=== PATIENT | female | born 1935 | race Caucasian/White ===

== ENCOUNTER 2018-01-25 11:09 | Emergency (ER) | payer MEDICARE, OTHER, SELFPAY ==
[2018-01-25 11:20] VITALS: BP 119/68; PULSE 70; RESP 18; TEMP 37.6; O2SAT 99; BMI 26.6
--- NOTE | 2018-01-25 11:30 | ED_ITS ---
HPI - Neuro Symptoms/Deficit General Chief Complaint: Neuro Symptoms/Deficit Stated Complaint: TREMORS, CHOKING ON SALIVA Time Seen by Provider: 01/25/18 11:11 Source: patient Mode of arrival: ambulatory Limitations: no limitations History of Present Illness HPI Narrative: 82-year-old female sent over from her primary care doctor's office for concerns of involuntary twitching. Patient states that she has never had any symptoms like this before. She went to her primary care doctor this morning for an already scheduled follow-up appointment for lower extremity issues. Patient states she woke this morning at approximately 7 o'clock. She states approximately 15 min after that she started to have involuntary movements of her face and upper extremities. Does not seem to involve her lower extremities. Is at baseline somewhat unsteady on her feet and she thinks she has become slightly more unsteady since these events started. They have not been consistent. Does not know any thing that triggers them. There are not suppress oval. Denies any other symptoms to include headache vision changes. No new medications. Related Data Home Medications Medication Instructions Recorded Confirmed Probiotic 1 cap PO QID 01/25/18 01/25/18 amlodipine 5 mg PO DAILY 01/25/18 01/25/18 ascorbic acid (vitamin C) [Vitamin 1,000 mg PO DAILY 01/25/18 01/25/18 C] atorvastatin 5 mg PO QHS 01/25/18 01/25/18 biotin 1 tab PO DAILY 01/25/18 01/25/18 bupropion HCl 150 mg PO BID 01/25/18 01/25/18 cholecalciferol (vitamin D3) 2,000 unit PO DAILY 01/25/18 01/25/18 [Vitamin D3] cyanocobalamin (vitamin B-12) 1 tab SUBLINGUAL DAILY 01/25/18 01/25/18 [Vitamin B-12] escitalopram oxalate 20 mg PO DAILY 01/25/18 01/25/18 gabapentin 300 mg PO TID 01/25/18 01/25/18 isosorbide mononitrate 10 mg PO BID 01/25/18 01/25/18 levothyroxine 50 mcg PO DAILY 01/25/18 01/25/18 lorazepam 0.5 mg PO DAILY PRN 01/25/18 01/25/18 losartan 100 mg PO DAILY 01/25/18 01/25/18 meloxicam 7.5 mg PO DAILY PRN 01/25/18 01/25/18 metformin 4 tab PO QPM 01/25/18 01/25/18 metoclopramide HCl 10 mg PO QID 01/25/18 01/25/18 metoprolol succinate 100 mg PO DAILY 01/25/18 01/25/18 montelukast 10 mg PO QPM 01/25/18 01/25/18 multivitamin 1 tab PO DAILY 01/25/18 01/25/18 nitroglycerin [Nitrostat] 0.4 mg SUBLINGUAL PRN PRN 01/25/18 01/25/18 pantoprazole 40 mg PO DAILY 01/25/18 01/25/18 sitagliptin [Januvia] 100 mg PO DAILY 01/25/18 01/25/18 zolpidem 5 mg PO QHS 01/25/18 01/25/18 Previous Rx's Medication Instructions Recorded lorazepam 0.5 mg PO .once PRN #5 tab 01/25/18 Allergies Allergy/AdvReac Type Severity Reaction Status Date / Time codeine [CODEINE] Allergy Intermediate Tired and Unverified 12/15/17 12:35 drowsy erythromycin base Allergy Intermediate Makes her Unverified 12/15/17 12:35 [ERYTHROMYCIN BASE] feel awful ciprofloxacin [CIPROFLOXACIN] Allergy Unknown Makes her Verified 01/25/18 11:30 very ill Review of Systems Constitutional Denies chills, Denies fever(s), Denies headache(s), Denies lethargy and Denies weakness Eyes Denies change in vision, Denies diplopia, Denies eye discharge, Denies irritation and Denies loss of vision ENT Ears, Nose, Mouth, and Throat: Denies change in voice, Denies dizziness, Denies headache(s), Denies neck pain and Denies sore throat Cardiovascular Denies chest pain, Denies syncope, Denies irregular heart rhythm, Denies lightheadedness, Denies palpitations, Denies dyspnea, Denies dyspnea on exertion and Denies orthopnea Respiratory Denies cough, Denies dyspnea, Denies dyspnea on exertion and Denies wheezing Gastrointestinal Gastrointestinal: Denies abdominal pain, Denies change in bowel habits, Denies diarrhea, Denies nausea and Denies vomiting Musculoskeletal Denies myalgias, Denies muscle cramps, Denies muscle weakness, Denies neck pain , Denies numbness, Denies stiffness and Denies tingling Integumentary/Breasts Denies pruritus, Denies erythema, Denies rash and Denies wounds Neurologic Denies behavioral changes, Denies confusion, Denies dizziness, Denies syncope, Denies headache(s), Denies lack of coordination, Denies focal weakness, Denies loss of vision, Denies numbness, Denies restless legs, Reports convulsions, Denies tingling and Denies weakness Comments: Involuntary twitching of the face and bilateral upper extremities Psychiatric Denies behavioral changes and Denies confusion Endocrine Denies palpitations Hematologic/Lymphatic Denies easy bruising Allergic/Immunologic Denies wheezing [facility] Social History Smoking Status: Never smoker Exam Initial Vital Signs Initial Vital Signs: Vital Signs Temperature 99.7 F H 01/25/18 11:20 Pulse Rate 70 01/25/18 11:20 Respiratory Rate 18 01/25/18 11:20 Blood Pressure 119/68 01/25/18 11:20 Pulse Oximetry 99 01/25/18 11:20 Const General: cooperative and well developed Nutritional Appearance: well nourished Orientation: alert, awake, oriented x3 and not confused Eyes General: appearance normal, both eyes and all related structures Pupils: PERRL Resp Effort & Inspection: normal respiratory effort, able to speak in complete sentences, no respiratory distress and no use of accessory muscles Auscultation: clear to auscultation bilaterally, no rales, no rhonchi and no wheezes Cardio Rate: regular rate Rhythm: regular rhythm Heart Sounds: no click, no gallops, no murmurs and no rubs Pulses: normal peripheral pulses GI Inspection: non-distended Palpation: soft, no hepatosplenomegaly, No guarding, No pulsatile mass and No tender Auscultation: normal bowel sounds Skin General: no rashes or lesions noted, No jaundice and No petechiae Neuro General: alert, awake, oriented x3, moves all extremities and no meningeal signs Cranial Nerves: CN's II-XI intact bilaterally and PERRL Cognition: normal cognition Speech: speech normal Motor: strength 5/5 throughout Sensory Exam: no sensory deficits noted Other: Patient with what appears to be muscle spasms involving both sides of her face both the top and the bottom and both upper extremities equally. Does not involve the lower extremities. Does not seem to be suppressed supple. Asked the patient to smile when the event happened and she was able to smile however her mouth was twitching. Also has times where she closes her eyes. Patient is alert and oriented. No other focal deficits. Strength 5/5 bilateral upper and lower extremities. Extrem General: full ROM, no clubbing, cyanosis or edema, no pedal edema and no calf tenderness Psych Appearance: well kempt Mental Status: mental status grossly normal Attitude: cooperative Thought Content: normal Judgment: judgment good Course Orders Ordered: ED Orders 01/25/18 11:30 CT head/brain wo con Stat Thyroid Stimulating Hormone Stat 01/25/18 11:35 Comprehensive Metabolic Panel Stat Prolactin Stat Discontinued Medications Lorazepam (Ativan) 1 mg IV NOW ONE Stop: 01/25/18 11:34 Last Admin: 01/25/18 11:41 Dose: 1 mg Vital Signs - 8 hr 01/25/18 11:20 01/25/18 12:05 01/25/18 12:56 Temperature 99.7 F H Pulse Rate 70 66 63 Respiratory Rate 18 14 16 Blood Pressure 119/68 Blood Pressure [Right Arm] 110/60 110/62 Pulse Oximetry 99 97 97 01/25/18 12:57 Temperature Pulse Rate 64 Respiratory Rate 16 Blood Pressure Blood Pressure [Right Arm] 110/62 Pulse Oximetry MDM - Neuro Symptoms/Deficit Lab Data Attestation: I reviewed the patient's lab results. Result diagrams: 01/25/18 11:35 Lab Results 01/25/18 01/25/18 Range/Units 11:30 11:35 Sodium 143 (137-145) mmol/L Potassium 5.4 H (3.4-5.1) mmol/L Chloride 105.0 (98-107) mmol/L Carbon Dioxide 25.0 (22-32) mmol/L BUN 24.0 H (7-17) mg/dL Creatinine 1.00 (0.52-1.04) mg/dL Estimated GFR 53.0 L (>60) mL/min BUN/Creatinine Ratio 24.0 H (6-22) Glucose 88 (80-110) mg/dL Calcium 9.2 (8.4-10.2) mg/dL Total Bilirubin 0.7 (0.2-1.3) mg/dL AST 39 H (14-36) IU/L ALT 29 (9-52) IU/L Alkaline Phosphatase 48 (38-126) U/L Total Protein 7.2 (6.3-8.2) g/dL Albumin 3.9 (3.5-5.0) g/dL Globulin 3.3 (1.7-4.1) g/dL Albumin/Globulin Ratio 1.2 (1.0-2.8) TSH 1.47 (0.47-4.68) uIU/mL Prolactin 92.0 H (3.0-18.6) ng/mL Imaging Data CT scan - head: Radiologist's impression: PROCEDURE: CT HEAD/BRAIN WO CON INDICATIONS: Seizure-like activity TECHNIQUE: Noncontrast 4.5 mm thick angled axial sections acquired from the foramen magnum to the vertex, with coronal and sagittal reformats. For radiation dose reduction, the following was used: automated exposure control, adjustment of mA and/or kV according to patient size. COMPARISON: None. FINDINGS: Image quality: Excellent. CSF spaces: Basal cisterns are patent. No extra-axial fluid collections. The ventricles are symmetric in size and shape. Brain: No intracranial bleeds or masses. There is cerebral volume loss for age , with resultant ventricular and sulcal prominence. There are periventricular and deep white matter chronic small vessel ischemic changes. There is intracranial internal carotid artery atherosclerosis. Skull and face: Calvarium and visualized facial bones appear intact, without suspicious lesions. Sinuses: Visualized sinuses and mastoids are clear. IMPRESSION: 1. Mild age related atrophy and chronic deep white matter ischemic changes. 2. No intracranial hemorrhage or space occupying mass lesion. Dictated by: Evan Sinha M.D. on 01/25/2018 at 12:02 [facility] Narrative Medical decision making narrative: 82-year-old female with relatively expected head CT for her age that had symptoms resolved after the Ativan here in the emergency department. She was alert and oriented during her entire time that was here. Considered medications that could potentially cause extrapyramidal side effects however she is only on Lexapro Wellbutrin Ambien and gabapentin that could potentially cause this and these are not classic for this type of reaction. I suspect that she was having partial seizures however this is not certain. Had a long discussion with the patient and her granddaughter who was at bedside regarding her symptoms. Will hold on anti seizure medication for now since this was the 1st incident that was like this. Informed her that she did need to talk with her primary care doctor who is aware of the situation because it was going on while she was at her primary doctor's office prior to this visit and to discuss the indication for an EEG and neurology follow-up. Patient was given return precautions. Will send home with a few pills of Ativan to take in the event that these symptoms reoccur. Patient a granddaughter expressed understanding and agreement with plan. Discharge Plan Departure Patient Disposition: Home, Self-Care Clinical Impression: Observed seizure-like activity Instructions: DI for Seizure Disorder -- Adult Activity Restrictions/Additional Instructions: Continue to take all of your medications as instructed. Have a feeling that the symptoms that she had today are partial seizures however this diagnosis is not certain. I highly recommend that you contact your primary care doctor to discuss the indication for a referral to see Neurology and an EEG. The medication you were given today is to be used in the case of these symptoms returning. Return to the emergency department for any new or worsening symptoms. Prescriptions: New lorazepam 0.5 mg tablet 0.5 mg PO .once PRN (Reason: shaking) Qty: 5 RF: 0 No Action bupropion HCl 150 mg tablet extended release 12 hr 150 mg PO BID RF: 0 gabapentin 600 mg tablet 300 mg PO TID RF: 0 atorvastatin 10 mg tablet 5 mg PO QHS RF: 0 metoprolol succinate 100 mg tablet extended release 24 hr 100 mg PO DAILY RF: 0 amlodipine 5 mg tablet 5 mg PO DAILY RF: 0 levothyroxine 50 mcg tablet 50 mcg PO DAILY RF: 0 pantoprazole 40 mg tablet,delayed release (DR/EC) 40 mg PO DAILY RF: 0 montelukast 10 mg tablet 10 mg PO QPM RF: 0 isosorbide mononitrate 10 mg tablet 10 mg PO BID RF: 0 zolpidem 10 mg tablet 5 mg PO QHS RF: 0 losartan 100 mg tablet 100 mg PO DAILY RF: 0 metformin 500 mg tablet extended release 24 hr 4 tab PO QPM RF: 0 escitalopram oxalate 20 mg tablet 20 mg PO DAILY RF: 0 sitagliptin [Januvia] 100 mg tablet 100 mg PO DAILY RF: 0 nitroglycerin [Nitrostat] 0.4 MG tablet, sublingual 0.4 mg Sublingual PRN PRN (Reason: Chest Pain) RF: 0 multivitamin Tablet 1 tab PO DAILY RF: 0 ascorbic acid (vitamin C) [Vitamin C] 1,000 mg Tablet 1,000 mg PO DAILY RF: 0 meloxicam 15 mg Tablet 7.5 mg PO DAILY PRN (Reason: Pain, Moderate) RF: 0 lorazepam 0.5 mg Tablet 0.5 mg PO DAILY PRN (Reason: Anxiety) RF: 0 metoclopramide HCl 10 mg Tablet 10 mg PO QID RF: 0 cholecalciferol (vitamin D3) [Vitamin D3] 2,000 unit Tablet 2,000 unit PO DAILY RF: 0 cyanocobalamin (vitamin B-12) [Vitamin B-12] 5,000 mcg Tablet, Sublingual 1 tab Sublingual DAILY RF: 0 Probiotic 1 cap PO QID RF: 0 biotin 7,500 mcg 1 tab PO DAILY RF: 0
[2018-01-25] MEDS: LORazepam 2 MG/ML SYRINGE 1 MG IV (11:41)
[2018-01-25 11:56] LABS: Alanine Aminotransferase 29 IU/L (9-52); Albumin 3.9 g/dL (3.5-5.0); Albumin Globulin Ratio 1.2 (1.0-2.8); Alkaline Phosphatase 48 U/L (38-126); Aspartate Aminotransferase 39 IU/L (14-36); Bilirubin Total 0.7 mg/dL (0.2-1.3); Calcium 9.2 mg/dL (8.4-10.2); Globulin 3.3 g/dL (1.7-4.1); Glucose 88 mg/dL (80-110); HEMOLYSIS 30 (0-50); Sodium 143 mmol/L (137-145); Total Protein 7.2 g/dL (6.3-8.2)
[2018-01-25 11:57] LABS: Potassium 5.4 mmol/L (3.4-5.1)
[2018-01-25 12:05] VITALS: BP 110/60; PULSE 66; RESP 14; O2SAT 97
[2018-01-25 12:52] LABS: Thyroid Stimulating Hormone 1.47 uIU/mL (0.47-4.68)
[2018-01-25 12:56] VITALS: BP 110/62; PULSE 63; RESP 16; O2SAT 97
[2018-01-25 12:57] VITALS: BP 110/62; PULSE 64; RESP 16
[2018-01-25 13:00] VITALS: BP 117/58; PULSE 65; RESP 18; O2SAT 97
== END 2018-01-25 13:31 | disposition home or self-care (01) ==
PROVIDERS: Emergency Provider Emergency Medicine
DX: R56.9 Unspecified convulsions (principal)
CPT/HCPCS: 36591; 70450; 80053; 82962; 84146; 84443; 96374; 99283; 99284; J2060

== ENCOUNTER → 2018-04-11 08:24 | Outpatient (CLI) | payer MEDICARE, OTHER, SELFPAY ==
[2018-04-11 11:13] LABS: TSH w/ Reflex to FT4 0.94 uIU/mL (0.47-4.68)
== END ==
PROVIDERS: Visit Provider Internal Medicine
DX: E03.9 Hypothyroidism, unspecified (principal)
CPT/HCPCS: 36415; 84443

== ENCOUNTER → 2018-07-07 09:24 | Outpatient (CLI) | payer MEDICARE, OTHER, SELFPAY ==
[2018-07-07 10:40] LABS: Add Manual Diff / Slide Review NO; Basophils Percent Auto 1.1 % (0-2); Eosinophils Percent Auto 9.4 % (2-4); Hematocrit 39.8 % (36-46); Hemoglobin 12.9 g/dL (12.0-16.0); Lymphocytes Percent Auto 31.9 % (25-40); Mean Corpuscular HGB Conc 32.4 % (30-36); Mean Corpuscular Hemoglobin 27.2 PG (26-34); Neutrophils Absolute Auto 3100 /uL (3000-5900); Neutrophils Percent Auto 49.6 % (50-75); Platelet Count 292 X10^3/uL (150-400); Red Blood Cell Count 4.74 X10^6/uL (4.0-5.2); Red Cell Distribution Width 14.6 % (11.6-14.8); White Blood Cell Count 6.2 X10^3/uL (4.5-11.0)
[2018-07-07 11:32] LABS: TSH w/ Reflex to FT4 1.38 uIU/mL (0.47-4.68)
[2018-07-07 12:48] LABS: Alanine Aminotransferase 34 IU/L (9-52); Aspartate Aminotransferase 46 IU/L (14-36); Blood Urea Nitrogen 21 mg/dL (7-17); Calcium 8.9 mg/dL (8.4-10.2); Carbon Dioxide 28 mmol/L (22-32); Chloride 105 mmol/L (98-107); Cholesterol 174 mg/dL (140-199); Estimated Glomerular Filt Rate 52.8 mL/min (>60); Glucose 182 mg/dL (80-110); HDL Cholesterol 65 mg/dL (40-60); HEMOLYSIS < 15 (0-50); LDL Cholesterol Calculated 72 mg/dL (<100); Potassium 4.1 mmol/L (3.4-5.1); Sodium 144 mmol/L (137-145); Triglycerides 186 mg/dL (35-150)
== END ==
PROVIDERS: Visit Provider Internal Medicine
DX: I10 Essential (primary) hypertension (principal); E78.5 Hyperlipidemia, unspecified; R19.7 Diarrhea, unspecified; E03.9 Hypothyroidism, unspecified
CPT/HCPCS: 36415; 80048; 80061; 84443; 84450; 84460; 85025

== ENCOUNTER → 2018-07-12 14:33 | Outpatient (CLI) | payer MEDICARE, OTHER, SELFPAY | PROVIDERS: PCP Internal Medicine; Visit Provider Internal Medicine | DX: Z00.00 Encounter for general adult medical examination without abnormal findings (principal); M85.851 Other specified disorders of bone density and structure, right thigh; Z78.0 Asymptomatic menopausal state; E11.9 Type 2 diabetes mellitus without complications; E07.9 Disorder of thyroid, unspecified; N28.9 Disorder of kidney and ureter, unspecified | CPT/HCPCS: 77080 ==

== ENCOUNTER → 2018-10-06 10:08 | Outpatient (CLI) | payer MEDICARE, OTHER, SELFPAY ==
[2018-10-06 11:37] LABS: Alanine Aminotransferase 21 IU/L (9-52); Aspartate Aminotransferase 21 IU/L (14-36); BUN Creatinine Ratio 22.5 (6-22); Blood Urea Nitrogen 27 mg/dL (7-17); Calcium 9.5 mg/dL (8.4-10.2); Carbon Dioxide 29 mmol/L (22-32); Chloride 100 mmol/L (98-107); Cholesterol 188 mg/dL (140-199); Estimated Glomerular Filt Rate 42.8 mL/min (>60); Glucose 267 mg/dL (80-110); HDL Cholesterol 68 mg/dL (40-60); HEMOLYSIS < 15 (0-50); LDL Cholesterol Calculated 87 mg/dL (<100); Potassium 4.4 mmol/L (3.4-5.1); Sodium 139 mmol/L (137-145); Triglycerides 167 mg/dL (35-150)
[2018-10-06 11:41] LABS: Hemoglobin A1C% w Est Avg Glu 9.4 % (4.0-6.0)
[2018-10-06 14:11] LABS: TSH w/ Reflex to FT4 1.91 uIU/mL (0.47-4.68)
== END ==
PROVIDERS: PCP Internal Medicine; Visit Provider Internal Medicine
DX: I10 Essential (primary) hypertension (principal); E78.5 Hyperlipidemia, unspecified; E11.9 Type 2 diabetes mellitus without complications; E03.9 Hypothyroidism, unspecified
CPT/HCPCS: 36415; 80048; 80061; 83036; 84443; 84450; 84460

== ENCOUNTER → 2018-12-20 18:36 | Outpatient (CLI) | payer MEDICARE, OTHER, SELFPAY ==
--- NOTE | 2018-12-20 18:40 | DI.MRI.S_ITS ---
PROCEDURE: MR HEAD/BRAIN WO CON INDICATIONS: SLURRED SPEECH TECHNIQUE: Non-contrast axial T1 spin echo, axial T2 fast spin echo, sagittal and axial FLAIR, coronal T2 fast spin echo, axial gradient echo, axial diffusion and ADC through the brain. COMPARISON: None. FINDINGS: Image quality: Excellent. CSF spaces: Ventricles appear symmetric in size and shape. Basal cisterns are patent. No extra-axial fluid collections. Brain: No intracranial bleeds or mass effects. There is cerebral volume loss for age. There are periventricular and deep white matter chronic small vessel ischemic changes. Brainstem appears normal. Diffusion-weighted images show no acute ischemic insults. No chronic ischemic insults. Normal intravascular flow voids are present. Skull and face: Calvarial bone marrow is normal in signal. Orbits are normal. Sinuses: Sinuses and mastoids are clear. IMPRESSION: Moderate microvascular atherosclerotic change in the deep white matter of each hemisphere but no stroke or mass is seen and no hemorrhage is identified. Dictated by: Gautam Quinones M.D. on 12/21/2018 at 8:06 Approved by: Gautam Quinones M.D. on 12/21/2018 at 8:07
== END ==
PROVIDERS: PCP Internal Medicine; Visit Provider Internal Medicine
DX: R47.81 Slurred speech (principal); I67.2 Cerebral atherosclerosis
CPT/HCPCS: 70551

== ENCOUNTER → 2019-01-19 16:49 | Outpatient (CLI) | payer MEDICARE, OTHER, SELFPAY ==
--- NOTE | 2019-01-19 16:52 | DI.MRI.S_ITS ---
PROCEDURE: MR HUMERUS LT WO/W CON INDICATIONS: Left upper arm pain radiating from shoulder TECHNIQUE: Noncontrast coronal T1 spin echo and STIR, sagittal T1 spin echo with fat saturation and STIR, axial T1 spin echo and T2 fast spin echo with fat saturation. After the administration of contrast, axial/sagittal/coronal T1 spin echo with fat saturation through the left humerus. COMPARISON: None. FINDINGS: Image quality: Excellent. Bones: Osteoarthritic changes are noted in the acromioclavicular joint and glenohumeral joint. Intraosseous cyst formation and greater tuberosity of humeral head is seen. There is no marrow edema. No fracture or dislocation. No bony erosive changes. No suspicious intraosseous lesion. No abnormal intraosseous enhancement. Soft tissues: There is tendinosis and low to moderate grade articular and bursal surface partial-thickness tear involving distal supraspinatus and infraspinatus extending to musculotendinous junction. Distal subscapularis tendinosis is also seen. Proximal intra-articular portion of long head biceps tendinosis is seen, and no evidence of biceps tendon rupture. There is small to moderate amount of joint fluid, subacromial subdeltoid bursal fluid and subcoracoid bursal fluid. No gross intra-articular loose body. No soft tissue masses are visualized. The scanned muscles demonstrate normal overall bulk and internal signal. Subcutaneous tissues appear normal as well. No abnormal soft tissue enhancement. IMPRESSION: 1. No soft tissue mass or fluid collection. No area of abnormal soft tissue enhancement or intraosseous enhancement. 2. 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 No marrow edema. No fracture or dislocation. 3. Tendinosis and low to moderate grade articular and bursal surface partial-thickness tear involving distal supraspinatus and infraspinatus. Distal subscapularis tendinosis. Tendinosis and low-grade intrasubstance partial thickness involving proximal intra-articular portion of long head biceps tendon. No full-thickness tendon rupture. No gross muscle signal abnormality. Dictated by: Dylan Blake M.D. on 01/20/2019 at 13:30 Approved by: Dylan Blake M.D. on 01/20/2019 at 13:41
== END ==
PROVIDERS: PCP Internal Medicine; Visit Provider Internal Medicine
DX: M79.622 Pain in left upper arm (principal); M75.112 Incomplete rotator cuff tear or rupture of left shoulder, not specified as traumatic; M25.512 Pain in left shoulder; R22.32 Localized swelling, mass and lump, left upper limb
CPT/HCPCS: 73220; A9579

== ENCOUNTER → 2019-02-11 11:43 | Outpatient (CLI) | payer MEDICARE, OTHER, SELFPAY ==
[2019-02-11 13:13] LABS: Clostridium Difficile Tox PCR Negative for C. diff
== END ==
PROVIDERS: PCP Internal Medicine; Visit Provider Internal Medicine
DX: R19.7 Diarrhea, unspecified (principal)
CPT/HCPCS: 87493

== ENCOUNTER → 2019-03-28 13:16 | Outpatient (CLI) | payer MEDICARE, OTHER, SELFPAY ==
--- NOTE | 2019-03-28 | DI.RAD.S_ITS ---
PROCEDURE: XR FOOT LT MIN 3V INDICATIONS: Pain in Lt foot TECHNIQUE: 3 views of the foot were acquired. COMPARISON: None. FINDINGS: Bones: No acute fracture or dislocation. There is mild interphalangeal joint space narrowing. Mild degenerative changes are present within the mid foot. A subchondral cyst is present within the navicular bone. A subchondral cyst or bony erosion is present at the head of the second metatarsal. Soft tissues: No tibiotalar joint effusion. Achilles tendon appears normal. IMPRESSION: 1. Degenerative changes as above. 2. Questionable bony erosions of the navicular bone and second metatarsal versus subchondral cyst. Erosive arthritis could be considered in the differential diagnosis. Dictated by: Zena Qureshi M.D. on 03/28/2019 at 14:36 Approved by: Zena Qureshi M.D. on 03/28/2019 at 14:37
== END ==
PROVIDERS: PCP Internal Medicine; Visit Provider Student in an Organized Health Care Education/Training Program
DX: M79.672 Pain in left foot (principal); M19.072 Primary osteoarthritis, left ankle and foot
CPT/HCPCS: 73630

== ENCOUNTER → 2019-04-01 11:13 | Outpatient (CLI) | payer MEDICARE, OTHER, SELFPAY ==
[2019-04-01 12:23] LABS: Add Manual Diff / Slide Review NO; Basophils Absolute Auto 100 /uL (0-100); Basophils Percent Auto 1.1 % (0-2); Eosinophils Absolute Auto 200 /uL (0-450); Eosinophils Percent Auto 3.2 % (2-4); Hematocrit 41.4 % (36-46); Hemoglobin 13.8 g/dL (12.0-16.0); Lymphocytes Absolute Auto 1900 /uL (1100-4500); Lymphocytes Percent Auto 26.4 % (25-40); Mean Corpuscular HGB Conc 33.2 % (30-36); Mean Corpuscular Hemoglobin 28.9 PG (26-34); Monocytes Absolute Auto 700 /uL (0-900); Monocytes Percent Auto 9.4 % (3-14); Neutrophils Absolute Auto 4200 /uL (1500-7000); Neutrophils Percent Auto 59.9 % (50-75); Platelet Count 245 X10^3/uL (150-400); Red Blood Cell Count 4.76 X10^6/uL (4.0-5.2); Red Cell Distribution Width 14.6 % (11.6-14.8)
[2019-04-01 12:32] LABS: Rheumatoid Factor 21.8 IU/mL (<12.0)
[2019-04-01 12:35] LABS: C-Reactive Protein Quant < 0.5 mg/dL (<1.0)
[2019-04-01 12:51] LABS: Erythrocyte Sedimentation Rate 23 MM/HR (0-20)
== END ==
PROVIDERS: PCP Internal Medicine; Visit Provider Internal Medicine
DX: M25.50 Pain in unspecified joint (principal)
CPT/HCPCS: 36415; 85025; 85651; 86140; 86200; 86430

== ENCOUNTER 2019-06-24 10:17 | Observation (INO) | payer MEDICARE, OTHER, SELFPAY ==
[2019-06-24] VITALS (15 sets, daily range): BP systolic 121–159; BP diastolic 56–74; PULSE 60–74; RESP 16–32; TEMP 36.6–37.8; O2SAT 93–100; BMI 29.1; BMI 28.6
--- NOTE | 2019-06-24 10:33 | DI.RAD.S_ITS ---
PROCEDURE: XR CHEST 1V INDICATIONS: confusion TECHNIQUE: One view of the chest was acquired. COMPARISON: [facility], , CHEST 1 VIEW, 03/24/2017, 22:14. FINDINGS: Surgical changes and devices: None. Lungs and pleura: Lungs are clear. No pleural effusions or pneumothorax. Mediastinum: Mediastinal contours appear normal. Heart size is normal. Bones and chest wall: No suspicious bony lesions. Degenerative changes of the spine and shoulders. Calcification adjacent to the humeral head, likely of the rotator cuff tendon. IMPRESSION: No acute cardiopulmonary findings. Dictated by: John Weston M.D. on 06/24/2019 at 10:31 Approved by: John Weston M.D. on 06/24/2019 at 10:33
--- NOTE | 2019-06-24 10:36 | ED.AMS ---
HPI - Altered Mental Status General Chief Complaint: Diabetic Problem Stated Complaint: Possible stroke Time Seen by Provider: 06/24/19 10:32 Source: patient and family Mode of arrival: Wheelchair History of Present Illness HPI narrative: Patient is a 84-year-old female with history of diabetes who presents with confusion. Daughter states that she tried going to wake her up she was very confused slightly combative unable to get words out. Accu-Chek in the ED is 27. Patient is awake drinking orange juice now. Symptoms seem to be improving. She states that she takes metformin, glipizide and Januvia. MD complaint: altered mental status and confusion Severity: moderate Context: diabetes Related Data Home Medications Medication Instructions Recorded Confirmed Probiotic 1 cap PO QID 01/25/18 06/13/19 amlodipine 5 mg PO DAILY 01/25/18 06/13/19 biotin 1 tab PO DAILY 01/25/18 06/13/19 isosorbide mononitrate 10 mg PO BID 01/25/18 06/13/19 levothyroxine 50 mcg PO DAILY 01/25/18 06/13/19 lorazepam 0.5 mg PO DAILY PRN 01/25/18 06/13/19 losartan 100 mg PO DAILY 01/25/18 06/13/19 metformin 4 tab PO QPM 01/25/18 06/13/19 metoprolol succinate 100 mg PO DAILY 01/25/18 06/13/19 multivitamin 1 tab PO DAILY 01/25/18 06/13/19 nitroglycerin [Nitrostat] 0.4 mg SUBLINGUAL PRN PRN 01/25/18 06/13/19 pantoprazole 40 mg PO DAILY 01/25/18 06/13/19 sitagliptin [Januvia] 100 mg PO DAILY 01/25/18 06/13/19 atorvastatin 10 mg tablet 5 mg PO DAILY tab 04/07/19 06/13/19 glipizide 10 mg tablet 10 mg PO BID 04/07/19 06/13/19 zolpidem 10 mg tablet 10 mg PO QHS tab 04/07/19 06/13/19 gabapentin 600 mg tablet See Rx Instructions .ROUTE 06/13/19 06/13/19 .COMPLEX tab Previous Rx's Medication Instructions Recorded escitalopram oxalate 20 mg tablet 20 mg PO DAILY #30 tab 05/09/19 Allergies Allergy/AdvReac Type Severity Reaction Status Date / Time codeine [CODEINE] Allergy Intermediate Tired and Verified 06/24/19 10:52 drowsy erythromycin base Allergy Intermediate Makes her Verified 06/24/19 10:52 [ERYTHROMYCIN BASE] feel awful ciprofloxacin [CIPROFLOXACIN] Allergy Unknown Makes her Verified 06/24/19 10:52 very ill Review of Systems Review of Systems ROS Unobtainable: All systems reviewed & are unremarkable except as noted in HPI and below Constitutional Constitutional: Denies chills, Denies fever(s), Denies lethargy and Denies weakness Eyes Eyes: Denies change in vision, Denies eye discharge, Denies irritation and Denies loss of vision ENT Ears, Nose, Mouth, and Throat: Denies change in voice, Denies dizziness, Denies neck pain and Denies sore throat Cardiovascular Cardiovascular: Denies chest pain, Denies irregular heart rhythm, Denies lightheadedness, Denies palpitations, Denies dyspnea, Denies dyspnea on exertion and Denies orthopnea Respiratory Respiratory: Denies cough, Denies dyspnea, Denies dyspnea on exertion and Denies wheezing Gastrointestinal Gastrointestinal: Denies abdominal pain, Denies change in bowel habits, Denies diarrhea, Denies nausea and Denies vomiting Musculoskeletal Musculoskeletal: Denies neck pain Integumentary/Breasts Skin/Breast: Denies pruritus, Denies erythema, Denies rash and Denies wounds Neurologic Neurologic: Reports as per HPI, Reports abnormal movements, Reports abnormal speech, Reports confusion, Denies dizziness, Denies loss of vision, Denies convulsions and Denies weakness Psychiatric Psychiatric: Reports confusion Endocrine Endocrine: Denies palpitations Allergic/Immunologic Allergic/Immunologic: Denies wheezing Patient History Medical History (Updated 06/24/19 @ 17:53 by Julian Lemon MD) Anxiety (Acute) Chest pain (Acute) Headache (Acute) Hypertension (Acute) Hypoglycemia (Inactive) Hypothyroidism (Acute) Major depression, recurrent, chronic (Acute) Type 2 diabetes mellitus (Acute) Surgical History (Updated 06/24/19 @ 17:54 by Julian Lemon MD) H/O bilateral breast reduction surgery (Acute) H/O elbow surgery (Acute) H/O gastric bypass (Acute) H/O lumbosacral spine surgery (Acute) H/O: hysterectomy (Acute) Family History (Updated 06/24/19 @ 17:55 by Julian Lemon MD) Mother Diabetes mellitus Pneumonia Father Myocardial infarct Social History household members: children Smoking Status: Never smoker Family History (Updated 06/24/19 @ 17:55 by Julian Lemon MD) Mother Diabetes mellitus Pneumonia Father Myocardial infarct Social History household members: children Smoking Status: Never smoker alcohol intake frequency: 0-2 drinks per day Substance Use Type: does not use Exam Initial Vital Signs Initial Vital Signs: Vital Signs Temperature 98.2 F 06/24/19 10:20 Pulse Rate 63 06/24/19 10:20 Respiratory Rate 18 06/24/19 10:20 Blood Pressure 156/66 H 06/24/19 10:20 GENERAL: Alert pleasant elderly female HEENT: Head atraumatic,EOMI, pupils reactive, face symmetric, CARDIOVASCULAR: Regular rate and rhythm without murmurs, rubs or gallops. RESPIRATORY: Breath sounds equal bilaterally, no wheezes rales or rhonchi. ABDOMEN: Soft, nontender. Normoactive bowel sounds all 4 quadrants. No guarding or rebound. : No CVA tenderness EXTREMITIES: Normal range of motion, no clubbing or edema. Neurovascularly intact NEUROLOGICAL: Alert and oriented x1. Nitrator Operator strength equal bilaterally SKIN: Warm, dry, no laceration, no petechiae, no rashes or lesions. Scores GCS [place] coma scale eye opening: Spontaneous [place] coma scale verbal response: Orientated [place] coma scale motor response: Obey commands [place] coma scale total score: 15 NIH Stroke Scale Level of Conciousness: Alert, keenly responsive Ask month/age: Answers both questions correctly. Open/close eyes, close hand: Performs both tasks correctly Best gaze horizontal: Normal Visual sparks: No visual loss Facial palsy: Normal symetrical movement Left arm drift: No drift for full 10 sec Right arm drift: No drift for full 10 sec Left leg drift: No drift for full 10 sec Right leg drift: No drift for full 10 sec Limb ataxia: Absent Sensory on face/arms/legs: Normal, no sensory loss Best language: No aphasia, normal Dysarthria: Normal Extinction or inattention: No abnormality Total NIH Stroke scale score: 0 Course Orders Ordered: ED Orders 06/24/19 10:33 XR chest 1V Stat 06/24/19 10:35 Complete Blood Count AUTO DIFF Stat Comprehensive Metabolic Panel Stat Lipase Stat Partial Thromboplastin Time Stat Prothrombin Time INR Stat Troponin & CK Cardiac Panel Stat 06/24/19 10:38 EKG-12 Lead Stat 06/24/19 11:05 EKG-12 Lead Routine Acetaminophen (Tylenol) 650 mg PO Q6HR PRN PRN Reason: As Needed for Fever/Mild Pain Amlodipine Besylate (Norvasc) 5 mg PO DAILY [facility] Atorvastatin Calcium (Lipitor) 5 mg PO DAILY [facility] Enoxaparin Sodium (Lovenox) 40 mg SUBCUT DAILY [facility] Escitalopram Oxalate (Lexapro) 20 mg PO DAILY [facility] Gabapentin (Neurontin) 600 mg PO DAILY [facility] Gabapentin (Neurontin) 300 mg PO BEDTIME [facility] Glipizide (Glucotrol) 10 mg PO QACBREAK [facility] Levothyroxine Sodium (Synthroid) 50 mcg PO 0600 [facility] Losartan Potassium (Cozaar) 100 mg PO DAILY [facility] Metformin HCl (Glucophage Xr) 1,000 mg PO 0800,1700 [facility] Last Admin: 06/24/19 17:01 Dose: 1,000 mg Documented by: MELISSA Metoprolol Succinate (Toprol Xl) 100 mg PO DAILY [facility] Pantoprazole Sodium (Protonix) 40 mg PO DAILY [facility] Sitagliptin Phosphate (Januvia) 100 mg PO DAILY [facility] Last Admin: 06/24/19 17:01 Dose: 100 mg Documented by: MELISSA Discontinued Medications Aspirin (Aspirin Chew) 324 mg PO NOW ONE Stop: 06/24/19 10:34 Last Admin: 06/24/19 10:44 Dose: Not Given Documented by: DARRICK Dextrose (D10w) 1,000 mls @ 125 mls/hr IV CONT [facility] Last Infusion: 06/24/19 13:25 Dose: 125 mls/hr Documented by: Admin: 06/24/19 10:49 Dose: 125 mls/hr Documented by: DARRICK Vital Signs Vital signs: Vital Signs - 8 hr 06/24/19 11:00 06/24/19 11:30 06/24/19 11:54 Pulse Rate 74 63 63 Respiratory Rate 24 22 18 Blood Pressure [Right Arm] 144/65 H 140/58 L 140/58 L Pulse Oximetry 93 98 97 06/24/19 12:05 06/24/19 12:30 Pulse Rate 61 68 Respiratory Rate 24 32 H Blood Pressure [Right Arm] 121/56 L 138/74 Pulse Oximetry 99 100 MDM - Altered Mental Status Lab Data Attestation: I reviewed the patient's lab results. Result diagrams: 06/24/19 10:35 06/24/19 10:35 Labs: Lab Results 06/24/19 06/24/19 06/24/19 Range/Units 10:35 10:35 10:35 WBC 7.0 (4.5-11.0) X10^3/uL RBC 4.96 (4.0-5.2) X10^6/uL Hgb 14.5 (12.0-16.0) g/dL Hct 44.3 (36-46) % MCV 89.4 (80-100) fL MCH 29.2 (26-34) PG MCHC 32.7 (30-36) % RDW 14.9 H (11.6-14.8) % Plt Count 239 (150-400) X10^3/uL Neut % (Auto) 51.8 (50-75) % Lymph % (Auto) 28.7 (25-40) % [place] % (Auto) 11.2 (3-14) % Eos % (Auto) 7.7 H (2-4) % Baso % (Auto) 0.6 (0-2) % Neut # (Auto) 3600 (5403-4753) /uL Lymph # (Auto) 2000 (8128-4572) /uL [place] # (Auto) 800 (0-900) /uL Eos # (Auto) 500 H (0-450) /uL Baso # (Auto) 0 (0-100) /uL PT 10.5 (10.1-12.7) SECONDS INR 0.9 (0.9-1.3) APTT 32 (26.4-36.2) SECONDS Sodium 142 (137-145) mmol/L Potassium 4.9 (3.4-5.1) mmol/L Chloride 103 (98-107) mmol/L Carbon Dioxide 31 (22-32) mmol/L BUN 22 H (7-17) mg/dL Creatinine 1.10 H (0.52-1.04) mg/dL Estimated GFR 47.2 L (>60) mL/min BUN/Creatinine Ratio 20.0 (6-22) Glucose 43 L* (80-110) mg/dL Calcium 9.4 (8.4-10.2) mg/dL Total Bilirubin 0.6 (0.2-1.3) mg/dL AST 28 (14-36) IU/L ALT 10 (9-52) IU/L Alkaline Phosphatase 67 (38-126) U/L Total Creatine Kinase 35 (30-135) U/L CK-MB (CK-2) TNP CK-MB (CK-2) Rel Index TNP Troponin I < 0.012 (0.01-0.034) ng/mL Total Protein 7.7 (6.3-8.2) g/dL Albumin 4.2 (3.5-5.0) g/dL Globulin 3.5 (1.7-4.1) g/dL Albumin/Globulin Ratio 1.2 (1.0-2.8) Lipase 76 (23-300) U/L Point of Care Testing Glucose POC 112 Imaging Data Chest x-ray: Radiologist's impression: PROCEDURE: XR CHEST 1V INDICATIONS: confusion TECHNIQUE: One view of the chest was acquired. COMPARISON: [facility], , CHEST 1 VIEW, 03/24/2017, 22:14. FINDINGS: Surgical changes and devices: None. Lungs and pleura: Lungs are clear. No pleural effusions or pneumothorax. Mediastinum: Mediastinal contours appear normal. Heart size is normal. Bones and chest wall: No suspicious bony lesions. Degenerative changes of the spine and shoulders. Calcification adjacent to the humeral head, likely of the rotator cuff tendon. IMPRESSION: No acute cardiopulmonary findings. Dictated by: John Weston M.D. on 06/24/2019 at 10:31 ECG Data Attestation: I personally reviewed and interpreted this ECG as follows: Prior ECG tracings: not available for review Interpretation: EKG 1. Sinus rhythm with left bundle branch block Q-wave noted in anterior septal leads unchanged from prior EKG. T-wave inversion noted in lead [address] elevation EKG 2. Sinus rhythm rate [address] elevations persistent T-wave inversions in lead 3 no changes from prior MDM Narrative Medical decision making narrative: Patient is awake alert able to eat. She is given orange juice, a sandwich crackers and cheese. She initially was placed on a D10 drip. Accu-Cheks Q 1 hour seem to be improving. Patient's mental status started improving immediately while drinking or shoes. She had no focal deficits at that time. She is on 3 different diabetic medications, Januvia glipizide and metformin per patient. I do not have a medication list. Glipizide is known to be long acting. That nothing has changed for her. She has been eating and drinking the same her routine has remained the same. Apparently few weeks or months ago her PCP added glipizide to help with her glucose control. Dr. lemon updated on patient's symptoms test results in ED to see and evaluate patient Discharge Plan Departure Patient Disposition: Admitted as Observation Clinical Impression: Hypoglycemia Discharge Date/Time: 06/24/19 14:05 Admit Date/Time: 06/24/19 12:30 Admit Provider: Julian Lemon
[2019-06-24] MEDS: DEXTROSE 10 % IN WATER 1,000 ML 125 ML IV (10:49)
[2019-06-24 10:53] LABS: Add Manual Diff / Slide Review NO; Basophils Absolute Auto 0 /uL (0-100); Basophils Percent Auto 0.6 % (0-2); Eosinophils Absolute Auto 500 /uL (0-450); Eosinophils Percent Auto 7.7 % (2-4); Hematocrit 44.3 % (36-46); Hemoglobin 14.5 g/dL (12.0-16.0); Lymphocytes Absolute Auto 2000 /uL (1100-4500); Lymphocytes Percent Auto 28.7 % (25-40); Mean Corpuscular HGB Conc 32.7 % (30-36); Mean Corpuscular Hemoglobin 29.2 PG (26-34); Mean Corpuscular Volume 89.4 fL (80-100); Monocytes Absolute Auto 800 /uL (0-900); Monocytes Percent Auto 11.2 % (3-14); Neutrophils Absolute Auto 3600 /uL (1500-7000); Neutrophils Percent Auto 51.8 % (50-75); Platelet Count 239 X10^3/uL (150-400); Red Blood Cell Count 4.96 X10^6/uL (4.0-5.2); Red Cell Distribution Width 14.9 % (11.6-14.8)
--- NOTE | 2019-06-24 11:01 | PC.NURSE ---
orange juice provided , tolerated well, skin warm dry pink.
[2019-06-24 11:15] LABS: INR 0.9 (0.9-1.3); Prothrombin Time 10.5 SECONDS (10.1-12.7)
--- NOTE | 2019-06-24 11:16 | PC.NURSE ---
Gave pt juice and sandwich
[2019-06-24 11:18] LABS: PTT Partial Thromboplastin Tim 32 SECONDS (26.4-36.2)
[2019-06-24 11:27] LABS: Alanine Aminotransferase 10 IU/L (9-52); Albumin 4.2 g/dL (3.5-5.0); Albumin Globulin Ratio 1.2 (1.0-2.8); Alkaline Phosphatase 67 U/L (38-126); Aspartate Aminotransferase 28 IU/L (14-36); Bilirubin Total 0.6 mg/dL (0.2-1.3); Blood Urea Nitrogen 22 mg/dL (7-17); Calcium 9.4 mg/dL (8.4-10.2); Carbon Dioxide 31 mmol/L (22-32); Chloride 103 mmol/L (98-107); Creatine Kinase 35 U/L (30-135); Estimated Glomerular Filt Rate 47.2 mL/min (>60); Globulin 3.5 g/dL (1.7-4.1); HEMOLYSIS < 15 (0-50); Lipase 76 U/L (23-300); Potassium 4.9 mmol/L (3.4-5.1); Sodium 142 mmol/L (137-145); Total Protein 7.7 g/dL (6.3-8.2)
[2019-06-24 11:38] LABS: Troponin I < 0.012 ng/mL (0.01-0.034)
[2019-06-24 11:40] LABS: Glucose 43 mg/dL (80-110)
--- NOTE | 2019-06-24 14:09 | P.HP_ITS ---
History of Present Illness History of Present Illness Date Patient Seen: 06/24/19 Chief complaint: Possible stroke Narrative: This is an 84 year old female with a blood sugar this morning of 27. She was supposed to be getting ready for a family wedding today but after waiting for her for an hour her daughter went to check on her around 9:00 a.m. and found her sitting on her bed acting confused. She was speaking in a word salad type pattern. She brought her directly to the hospital where her initial blood sugar was 27. She had a similar hypoglycemic episode 3 years ago. 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 She says her morning blood sugars however are usually in the 80-110 range. Yesterday was a normal day for her. She took her usual diabetes medicines at the standard times and ate steak and potatoes at 5:30 p.m.. When she went to bed her blood sugar was 230. She has been on the same diabetes medicines of Januvia, glipizide, m etformin for a few years. With a D10 drip her blood sugars have returned above 100 and she is now being admitted to monitor regularly on her usual medications to ensure that hypoglycemia is not occurring more often and to evaluate for other potential causes of hypoglycemia including UTI, [place] etc. Her EKGs are carefully reviewed and reveal evidence of an old anteroseptal [place] but no acute [place]. Her troponin is negative. The UA shows trace leukocytes but negative nitrites, blood and WBCs. She has had no nausea, vomiting, chest pain, shortness of breath, coughing or bleeding. Patient History Medical History (Updated 06/24/19 @ 17:53 by Julian Lemon MD) Anxiety (Acute) Chest pain (Acute) Headache (Acute) Hypertension (Acute) Hypoglycemia (Inactive) Hypothyroidism (Acute) Major depression, recurrent, chronic (Acute) Type 2 diabetes mellitus (Acute) Surgical History (Updated 06/24/19 @ 17:54 by Julian Lemon MD) H/O bilateral breast reduction surgery (Acute) H/O elbow surgery (Acute) H/O gastric bypass (Acute) H/O lumbosacral spine surgery (Acute) H/O: hysterectomy (Acute) Family History (Updated 06/24/19 @ 17:55 by Julian Lemon MD) Mother Diabetes mellitus Pneumonia Father Myocardial infarct Social History household members: children Smoking Status: Never smoker Family & Social History Family History (Updated 06/24/19 @ 17:55 by Julian Lemon MD) Mother Diabetes mellitus Pneumonia Father Myocardial infarct Social History: Her backup decision maker is her daughter, who lives next door to her, Flaca Zuñiga. She is DNR and says ?if something happens let me go. Safety & Behavioral: Feels Safe in Current Yes Environment Been Physically Hurt or No Threatened By a Person Tobacco & Substance use: Smoking Status Never smoker alcohol intake frequency 0-2 drinks per day Substance Use Type does not use Meds Home Medications and Allergies Home Medications Medication Instructions Recorded Confirmed Type Probiotic 1 cap PO QID 01/25/18 06/13/19 History amlodipine 5 mg PO DAILY 01/25/18 06/13/19 History biotin 1 tab PO DAILY 01/25/18 06/13/19 History isosorbide mononitrate 10 mg PO BID 01/25/18 06/13/19 History levothyroxine 50 mcg PO DAILY 01/25/18 06/13/19 History lorazepam 0.5 mg PO DAILY PRN 01/25/18 06/13/19 History losartan 100 mg PO DAILY 01/25/18 06/13/19 History metformin 4 tab PO QPM 01/25/18 06/13/19 History metoprolol succinate 100 mg PO DAILY 01/25/18 06/13/19 History multivitamin 1 tab PO DAILY 01/25/18 06/13/19 History nitroglycerin [Nitrostat] 0.4 mg SUBLINGUAL PRN PRN 01/25/18 06/13/19 History pantoprazole 40 mg PO DAILY 01/25/18 06/13/19 History sitagliptin [Januvia] 100 mg PO DAILY 01/25/18 06/13/19 History atorvastatin 10 mg tablet 5 mg PO DAILY tab 04/07/19 06/13/19 History glipizide 10 mg tablet 10 mg PO BID 04/07/19 06/13/19 History zolpidem 10 mg tablet 10 mg PO QHS tab 04/07/19 06/13/19 History escitalopram oxalate 20 mg tablet 20 mg PO DAILY #30 tab 05/09/19 06/13/19 Rx gabapentin 600 mg tablet See Rx Instructions .ROUTE 06/13/19 06/13/19 History .COMPLEX tab Allergies Allergy/AdvReac Type Severity Reaction Status Date / Time codeine [CODEINE] Allergy Intermediate Tired and Verified 06/24/19 10:52 drowsy erythromycin base Allergy Intermediate Makes her Verified 06/24/19 10:52 [ERYTHROMYCIN BASE] feel awful ciprofloxacin [CIPROFLOXACIN] Allergy Unknown Makes her Verified 06/24/19 10:52 very ill Review of Systems Review of Systems Narrative: Positive for confusion and right arm pain. Negative for fever, chills, sweats, dysuria, coughing, chest pain, shortness of breath, bleeding, abdominal pain, vomiting, diarrhea, seizures, rash, new allergies. ROS Unobtainable: All systems reviewed & are unremarkable except as noted in HPI and below Exam Vital Signs (past 8 hours): - 06/24/19 10:20 06/24/19 11:00 06/24/19 11:30 Temperature 98.2 F Pulse Rate 63 74 63 Respiratory Rate 18 24 22 Blood Pressure 156/66 H Blood Pressure [Right Arm] 144/65 H 140/58 L Pulse Oximetry 93 98 06/24/19 11:54 06/24/19 12:05 06/24/19 12:30 Temperature Pulse Rate 63 61 68 Respiratory Rate 18 24 32 H Blood Pressure Blood Pressure [Right Arm] 140/58 L 121/56 L 138/74 Pulse Oximetry 97 99 100 06/24/19 14:05 Temperature 98 F Pulse Rate Respiratory Rate Blood Pressure Blood Pressure [Right Arm] Pulse Oximetry Oxygen Delivery Method Room Air Narrative Exam Narrative: She is alert and oriented x3. No apparent distress She is quite talkative and assertive. Pupils are equally round and reactive to light and accommodation. Extraocular muscles are intact. Sclerae are pink and nonicteric. No lymph nodes are felt head, neck, supraclavicular area. There is no thyromegaly. Throat looks normal. JVD is less than 6 cm. No carotid bruits are heard. Heart is regular rate and rhythm without murmur. Lungs are clear to auscultation bilaterally. Abdomen is soft, bowel sounds positive, nontender, no organomegaly. Extremities have no ankle edema. Neuro exam. Motor function is 5/5 throughout. Cranial nerves 2-12 tested intact. There is no tremor. She is fully oriented and interactive. Skin has no rash or jaundice. Objective Imaging Chest x-ray: Radiologist's impression: No acute abnormality ECG: My impression: Sinus rhythm with left bundle branch block and an old anteroseptal [place] Labs Result Diagrams: 06/24/19 10:35 06/24/19 10:35 Labs: Laboratory Results - last 24 hr 06/24/19 06/24/19 06/24/19 10:35 10:35 10:35 WBC 7.0 RBC 4.96 Hgb 14.5 Hct 44.3 MCV 89.4 MCH 29.2 MCHC 32.7 RDW 14.9 H Plt Count 239 Neut % (Auto) 51.8 Lymph % (Auto) 28.7 [place] % (Auto) 11.2 Eos % (Auto) 7.7 H Baso % (Auto) 0.6 Neut # (Auto) 3600 Lymph # (Auto) 2000 [place] # (Auto) 800 Eos # (Auto) 500 H Baso # (Auto) 0 PT 10.5 INR 0.9 APTT 32 Sodium 142 Potassium 4.9 Chloride 103 Carbon Dioxide 31 BUN 22 H Creatinine 1.10 H Estimated GFR 47.2 L BUN/Creatinine Ratio 20.0 Glucose 43 L* Calcium 9.4 Total Bilirubin 0.6 AST 28 ALT 10 Alkaline Phosphatase 67 Total Creatine Kinase 35 CK-MB (CK-2) TNP CK-MB (CK-2) Rel Index TNP Troponin I < 0.012 Total Protein 7.7 Albumin 4.2 Globulin 3.5 Albumin/Globulin Ratio 1.2 Lipase 76 Assessment & Plan Assessment & Plan narrative: Symptomatic Hypoglycemia -she will be admitted for observation and blood sugar monitoring with her usual diabetes medicines resumed. -so far there is no clear explanation for why she was hypoglycemic this morning. -no EKG or troponin evidence of an [place]. No UA evidence of a UTI. No vomiting. No duplication of her medications. No fasting or excessive exercise. -her blood sugar will be rechecked in the morning and if she does well she will likely be discharged home with adjustments if indicated. An A1c will be checked. Type 2 Diabetes Mellitus -continue Januvia, metformin, glipizide. -monitor blood sugars AC and HS. Check A1c. Hypertension -continue losartan, amlodipine, isosorbide, metoprolol. Depression -continue Lexapro Hypothyroidism -continue levothyroxine Insomnia -plan to hold zolpidem tonight GERD -continue pantoprazole Hyperlipidemia -continue atorvastatin
[2019-06-24] MEDS: METFORMIN XR 500 MG TABLET 1000 MG PO (17:01)
[2019-06-24] MEDS: SITAGLIPTIN 50 MG TABLET 100 MG PO (17:01)
--- NOTE | 2019-06-24 17:08 | PC.NURSE ---
Addendum entered by Claudia Singh R.N. 06/24/19 18:08: 1800 - Pt ate approximately 25% of her evening meal. She states that's all I really eat. Discussed home food intake and blood glucose monitoring, pt report monitoring twice daily, first thing in the A.M. and 2 hours after meal. Original Note: 1700 - MD notified that pt pre-meal BG is 80. Reviewed order oral medications. Per telephone conversation okay to give medications and monitor for effect. Pt able to take po meds without difficulty. Poor historian r/t medications and pt daughter unable to locate current list. Set up for evening meal. Call light in reach. Bed alarm on.
[2019-06-24 20:03] LABS: Hemoglobin A1C% w Est Avg Glu 4.9 % (4.0-6.0)
[2019-06-24] MEDS: GABAPENTIN 300 MG CAPSULE PO (20:47)
[2019-06-24 21:58] LABS: RBC Urine None Seen (0-5/HPF)
[2019-06-24 22:05] LABS: Squamous Epithelial Cell Urine 0-1 /HPF (0-5/HPF); WBC Urine 0-1/HPF (0-5/HPF)
[2019-06-24 22:06] LABS: Bacteria Urine Occasional (0-1); Culture Indicated Urine Cult Not Indicated
--- NOTE | 2019-06-25 02:23 | PC.NURSE ---
Addendum entered by Robbie Acosta R.N. 06/25/19 02:26: Rafaela VELÁZQUEZ notified of BS. We talked about spot checking again at 0500. Original Note: Pt continues to be hypoglycemic this night. Pt checked at 2345 and BS 52, orange juice given. Pt re-checked at 0200 and BS 60, pt given orange juice.
[2019-06-25 05:00] VITALS: BP 125/57; PULSE 62; RESP 16; TEMP 36.8; O2SAT 93
[2019-06-25] MEDS: LEVOTHYROXINE 50 MCG TABLET PO (05:58)
[2019-06-25 07:30] VITALS: BP 139/69; PULSE 66; RESP 17; TEMP 36.7; O2SAT 99
[2019-06-25 08:10] VITALS: O2SAT 99
[2019-06-25] MEDS: AMLODIPINE 5 MG TABLET PO (08:16)
[2019-06-25] MEDS: ENOXAPARIN 40 MG/0.4 ML SYRINGE SUBCUT (08:18)
[2019-06-25] MEDS: ATORVASTATIN 10 MG TABLET 5 MG PO (08:19)
[2019-06-25] MEDS: ESCITALOPRAM 10 MG TABLET 20 MG PO (08:19)
[2019-06-25] MEDS: GABAPENTIN 600 MG TABLET PO (08:19)
[2019-06-25] MEDS: LOSARTAN 50 MG TABLET 100 MG PO (08:21)
[2019-06-25] MEDS: METOPROLOL ER 50 MG TABLET 100 MG PO (08:21)
[2019-06-25] MEDS: PANTOPRAZOLE 40 MG TABLET PO (08:22)
[2019-06-25] MEDS: METFORMIN XR 500 MG TABLET 1000 MG PO (08:26)
--- NOTE | 2019-06-25 11:28 | P.DS_ITS ---
History of Present Illness History of Present Illness Date Patient Seen: 06/25/19 Time Patient Seen: 12:38 Chief complaint: Possible stroke Narrative: This is an 84 year old female with a blood sugar this morning of 27. She was supposed to be getting ready for a family wedding today but after waiting for her for an hour her daughter went to check on her around 9:00 a.m. and found her sitting on her bed acting confused. She was speaking in a word salad type pat tern. She brought her directly to the hospital where her initial blood sugar was 27. She had a similar hypoglycemic episode 3 years ago. 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 She says her morning blood sugars however are usually in the 80-110 range. Yesterday was a normal day for her. She took her usual diabetes medicines at the standard times and ate steak and potatoes at 5:30 p.m.. When she went to bed her blood sugar was 230. She has been on the same diabetes medicines of Januvia, glipizide, metformin for a few years. With a D10 drip her blood sugars have returned above 100 and she is now being admitted to monitor regularly on her usual medications to ensure that hypoglycemia is not occurring more often and to evaluate for other potential causes of hypoglycemia including UTI, LA etc. Her EKGs are carefully reviewed and reveal evidence of an old anteroseptal LA but no acute LA. Her troponin is negative. The UA shows trace leukocytes but negative nitrites, blood and WBCs. She has had no nausea, vomiting, chest pain, shortness of breath, coughing or bleeding. Discharge Providers Provider Date of admission: 06/24/19 12:30 Discharge Date: 06/25/19 Primary care physician: Elsa May MD Discharge provider: Julian Lemon MD Summary Hospital Course Discharge Diagnosis: Symptomatic Hypoglycemia. Type 2 Diabetes Mellitus Hypertension Depression Hypothyroidism Insomnia GERD Hyperlipidemia Hospital Course: Symptomatic Hypoglycemia -her blood sugars have remained quite low, despite receiving only metformin and Januvia (no glipizide yesterday). The A1c is also very low at 4.9. The blood sugars were 52 at midnight and 60 at 2:00 a.m.. She indicates that she may have lost some weight recently. She did have a gastric bariatric procedure of some sort but she seems to be saying that was several years ago? -the glipizide and Januvia will both be stopped. This will be followed up with her Primary Care-Dr. May. -no EKG or troponin evidence of an LA. No UA evidence of a UTI. No vomiting. No duplication of her medications. No fasting or excessive exercise. Type 2 Diabetes Mellitus -stopping Januvia and glipizide at discharge today. A1c 4.9 Hypertension -continue losartan, amlodipine, isosorbide, metoprolol. Depression -continue Lexapro Hypothyroidism -continue levothyroxine Insomnia -zolpidem GERD -continue pantoprazole Hyperlipidemia -continue atorvastatin Exam Vital Signs (past 8 hours): - 06/25/19 05:00 06/25/19 07:30 06/25/19 08:10 Temperature 98.2 F 98.1 F Pulse Rate 62 66 Respiratory Rate 16 17 Blood Pressure 125/57 L 139/69 Pulse Oximetry 93 99 99 Oxygen Delivery Method Room Air Oxygen Flow Rate 0 Narrative Exam Narrative: She is alert and oriented x3. No apparent distress. Heart is regular rate and rhythm without murmur. Lungs are clear to auscultation bilaterally. Extremities have no ankle edema. Objective Labs Result Diagrams: 06/24/19 10:35 06/24/19 10:35 Labs: Laboratory Results - last 24 hr 06/24/19 06/24/19 06/24/19 10:35 14:37 19:19 Sodium 142 Potassium 4.9 Chloride 103 Carbon Dioxide 31 BUN 22 H Creatinine 1.10 H Estimated GFR 47.2 L BUN/Creatinine Ratio 20.0 Glucose 43 L* Hemoglobin A1c 4.9 Calcium 9.4 Total Bilirubin 0.6 AST 28 ALT 10 Alkaline Phosphatase 67 Total Creatine Kinase 35 CK-MB (CK-2) TNP CK-MB (CK-2) Rel Index TNP Troponin I < 0.012 Total Protein 7.7 Albumin 4.2 Globulin 3.5 Albumin/Globulin Ratio 1.2 Lipase 76 Urine RBC Urine WBC Ur Squamous Epith Cells Urine Bacteria Ur Culture Indicated? Nasal Screen MRSA (PCR) Negative for mrsa 06/24/19 21:55 Sodium Potassium Chloride Carbon Dioxide BUN Creatinine Estimated GFR BUN/Creatinine Ratio Glucose Hemoglobin A1c Calcium Total Bilirubin AST ALT Alkaline Phosphatase Total Creatine Kinase CK-MB (CK-2) CK-MB (CK-2) Rel Index Troponin I Total Protein Albumin Globulin Albumin/Globulin Ratio Lipase Urine RBC None seen Urine WBC 0-1/hpf Ur Squamous Epith Cells 0-1 /hpf Urine Bacteria Occasional (0-1) Ur Culture Indicated? Cult not indicated Nasal Screen MRSA (PCR) Discharge Plan Discharge Plan Patient Disposition: Home Discharge comment: Stop taking glipizide and januvia. Continue taking metformin. Follow up with Dr. Elsa May in one week. Discharge Med Rec/Prescriptions Prescriptions: Continued atorvastatin 10 mg tablet 5 mg PO DAILY RF: 0 escitalopram oxalate 20 mg tablet 20 mg PO DAILY Qty: 30 RF: 3 gabapentin 600 mg tablet See Rx Instructions .ROUTE .COMPLEX RF: 0 metoprolol succinate 100 mg tablet extended release 24 hr 100 mg PO DAILY RF: 0 amlodipine 5 mg tablet 5 mg PO DAILY RF: 0 levothyroxine 50 mcg tablet 50 mcg PO DAILY RF: 0 pantoprazole 40 mg tablet,delayed release (DR/EC) 40 mg PO DAILY RF: 0 isosorbide mononitrate 10 mg tablet 10 mg PO BID RF: 0 losartan 100 mg tablet 100 mg PO DAILY RF: 0 metformin 500 mg tablet extended release 24 hr 4 tab PO QPM RF: 0 nitroglycerin [Nitrostat] 0.4 MG tablet, sublingual 0.4 mg Sublingual PRN PRN (Reason: Chest Pain) RF: 0 multivitamin Tablet 1 tab PO DAILY RF: 0 lorazepam 0.5 mg Tablet 0.5 mg PO DAILY PRN (Reason: Anxiety) RF: 0 Probiotic 1 cap PO QID RF: 0 biotin 7,500 mcg 1 tab PO DAILY RF: 0 zolpidem 10 mg tablet 10 mg PO QHS RF: 0 Discontinued glipizide 10 mg tablet 10 mg PO BID RF: 0 Januvia 100 mg tablet 100 mg PO DAILY RF: 0 Follow up/Referrals: Elsa May MD [Primary Care Provider] - 07/05/[address] ([address] May's office Wednesday morning to try and make your appointment sooner.) Provider Discharge Instructions Diet: Carb-consistent/Diabetic Visit Report/Discharge Packet Instructions: DI for Hypoglycemia, How to Prevent Falls, Metformin Discharge Data Primary Care Provider: Elsa May Attending Provider: Julian Lemon Admit Date/Time: 06/24/19 12:30 Discharges patient from system. Discharge Date/Time: 06/25/19 13:33
[2019-06-25 11:30] VITALS: BP 135/71; PULSE 60; RESP 17; TEMP 36.6; O2SAT 95
--- NOTE | 2019-06-25 13:35 | PC.NURSE ---
Day Shift- Pt BG finger stick was 78 this AM, asymptomatic. A&OX4, able to make needs known with call light. Bed alarm on. Pt denies chest pain/pressure, nausea, pain or discomfort. Pt OOB with SBA, steady gait. Pt's daughter present to drive pt home as they live next to each other in a duplex. Discharge summary reviewed with pt and her daughter, all questions answered. Encouraged pt to have a bedtime healthy snack and may check her BG finger stick during the night. Record BG checks and food and any symptoms to report to her PCP. Pt states she already has an appointment for 07/05. No prescriptions for pt. No further voiced concerns, pt states she has all her belongings. Pt left unit via wheelchair with RN escort in no distress with her daughter at her side.
--- NOTE | 2019-06-25 14:43 | CM.DANOTE ---
DCP/Brief Assessment: Reviewed chart. Patient is a 84yr old female admitted to [facility] with stroke like symptoms. PCP is Dr. Elsa May. Primary payor is 1)Medicare 2)[employer]. Discussed case in AM rounds. Per Dr. Lemon it is anticipated that patient will d/c home today with no identified d/c planning needs. Patient has outpatient follow up appointment with PCP/Dr. May on 07-05-19. It is recommended that patient call tomorrow 06-26-19 to attempt to get sooner appointment for unexplained hypoglycemia. P: Home today. MIKE Shepard
== END 2019-06-25 13:33 | disposition home or self-care (01) ==
LOC: ED 12:15 → AC 12:31 → ICU 12:56 → AC 19:51
PROVIDERS: Admitting Provider Family Medicine; Emergency Provider Emergency Medicine; PCP Internal Medicine; Visit Provider Family Medicine
DX: E11.649 Type 2 diabetes mellitus with hypoglycemia without coma (principal); R41.0 Disorientation, unspecified; Z79.84 Long term (current) use of oral hypoglycemic drugs; E78.5 Hyperlipidemia, unspecified; K21.9 Gastro-esophageal reflux disease without esophagitis; G47.00 Insomnia, unspecified; E03.9 Hypothyroidism, unspecified; F32.9 Major depressive disorder, single episode, unspecified; I10 Essential (primary) hypertension
CPT/HCPCS: 36415; 71045; 80053; 81003; 81015; 82550; 82962; 83036; 83690; 84484; 85025; 85610; 85730; 87797; 93005; 93041; 96360; 96361; 96372; 99285; G0378; J1650

== ENCOUNTER → 2019-07-13 09:07 | Outpatient (CLI) | payer MEDICARE, OTHER, SELFPAY ==
[2019-06-24 14:15] VITALS: BMI 28.6
[2019-07-13 10:01] LABS: Hemoglobin A1C% w Est Avg Glu 5.5 % (4.0-6.0)
[2019-07-13 10:19] LABS: Alanine Aminotransferase 12 IU/L (<35); Aspartate Aminotransferase 22 IU/L (14-36); BUN Creatinine Ratio 22.2 (6-22); Blood Urea Nitrogen 20 mg/dL (7-17); Calcium 9.6 mg/dL (8.4-10.2); Carbon Dioxide 30 mmol/L (22-32); Chloride 101 mmol/L (98-107); Cholesterol 183 mg/dL (140-199); Estimated Glomerular Filt Rate 59.5 mL/min (>60); Glucose 160 mg/dL (80-110); HDL Cholesterol 55 mg/dL (40-60); HEMOLYSIS < 15 (0-50); LDL Cholesterol Calculated 79 mg/dL (<100); Potassium 4.4 mmol/L (3.4-5.1); Sodium 139 mmol/L (137-145); Triglycerides 247 mg/dL (35-150)
[2019-07-13 10:48] LABS: TSH w/ Reflex to FT4 1.29 uIU/mL (0.47-4.68)
== END ==
PROVIDERS: PCP Internal Medicine; Visit Provider Internal Medicine
DX: I10 Essential (primary) hypertension (principal); E78.5 Hyperlipidemia, unspecified; E11.9 Type 2 diabetes mellitus without complications; E03.9 Hypothyroidism, unspecified
CPT/HCPCS: 36415; 80048; 80061; 83036; 84443; 84450; 84460

== ENCOUNTER → 2020-01-08 13:22 | Outpatient (ROUT) | payer MEDICARE, OTHER, SELFPAY ==
[2019-12-19 11:35] VITALS: BMI 28.6
[2020-01-08 13:54] LABS: BUN Creatinine Ratio 14.1 (6-22); Blood Urea Nitrogen 14 mg/dL (7-17); Calcium 9.3 mg/dL (8.4-10.2); Carbon Dioxide 29 mmol/L (22-32); Chloride 101 mmol/L (98-107); Estimated Glomerular Filt Rate 53.3 mL/min (>60); Glucose 244 mg/dL (80-110); HEMOLYSIS < 15 (0-50); Potassium 4.3 mmol/L (3.4-5.1); Sodium 138 mmol/L (137-145)
[2020-01-08 14:06] LABS: Hemoglobin A1C% w Est Avg Glu 7.6 % (4.0-6.0)
[2020-01-08 14:24] LABS: TSH w/ Reflex to FT4 1.52 uIU/mL (0.47-4.68)
== END ==
PROVIDERS: PCP Nurse Practitioner; Visit Provider Internal Medicine
DX: E11.9 Type 2 diabetes mellitus without complications (principal); E03.9 Hypothyroidism, unspecified
CPT/HCPCS: 80048; 83036; 84443